=== PATIENT | male | born 1995 | race Two or more races ===

== ENCOUNTER 2024-08-07 04:05 | Emergency (ER) | payer MEDICAID ==
[~2024-08-07] VITALS: Ht 177.8 cm; Wt 72.7 kg
[2024-08-07 04:07] VITALS: BP 140/89; PULSE 94; RESP 18; TEMP 97.9; O2SAT 100
== END 2024-08-07 04:27 | disposition left against medical advice (07) ==
LOC: EMS 04:05
DX: R06.02 Shortness of breath (principal); Z53.21 Procedure and treatment not carried out due to patient leaving prior to being seen by health care provider
CPT/HCPCS: 82962

== ENCOUNTER 2024-08-16 18:34 | Emergency (ER) | payer MEDICAID | END 2024-08-16 18:58 | disposition left against medical advice (07) | LOC: EMS 18:35 | DX: M54.50 Low back pain, unspecified (principal); Z53.21 Procedure and treatment not carried out due to patient leaving prior to being seen by health care provider ==

== ENCOUNTER 2024-09-11 20:09 | Emergency (ER) | payer MEDICAID ==
[~2024-09-11] VITALS: Ht 177.8 cm; Wt 72.7 kg
[2024-09-11 20:22] VITALS: TEMP 97.8
[2024-09-11 22:22] VITALS: BP 145/81; PULSE 95; RESP 18; O2SAT 99
[2024-09-11] MEDS: IBUPROFEN 600 MG TABLET PO ONE (23:00)
[2024-09-11] MEDS: ACETAMINOPHEN 500 MG TABLET PO ONE (23:01)
[2024-09-11] MEDS ORDERED: LIDO700A15 TP (23:12)
[2024-09-11] MEDS ORDERED: ACET-3385 PO (23:12)
[2024-09-11] MEDS ORDERED: IBUP-1492 PO (23:12)
[2024-09-11] MEDS: LIDOCAINE 5% TRANSDERMAL PATCH TD ONE (23:19)
== END 2024-09-11 23:23 | disposition home or self-care (01) ==
LOC: EMS 20:09
DX: S46.012A Strain of muscle(s) and tendon(s) of the rotator cuff of left shoulder, initial encounter (principal); M54.41 Lumbago with sciatica, right side; F12.90 Cannabis use, unspecified, uncomplicated; X58.XXXA Exposure to other specified factors, initial encounter; Y93.89 Activity, other specified; Y92.89 Other specified places as the place of occurrence of the external cause; Y99.8 Other external cause status
CPT/HCPCS: 99283